=== PATIENT | male | born 1940 | race African-American/Black ===

== ENCOUNTER 2017-08-16 08:10 | Emergency (ER) | payer OTHER, MEDICAID ==
[~2017-08-16] VITALS: Ht 177.8 cm; Wt 86.0 kg
[2017-08-16 09:55] VITALS: BP 143/75
== END 2017-08-16 11:37 | disposition home or self-care (01) ==
LOC: ER 09:34
DX: L05.91 Pilonidal cyst without abscess (principal); I10 Essential (primary) hypertension; Z88.0 Allergy status to penicillin
CPT/HCPCS: 99283

== ENCOUNTER 2020-05-30 09:34 | Emergency (ER) | payer MEDICAID, MEDICARE, OTHER ==
[~2020-05-30] VITALS: Ht 177.8 cm; Wt 86.0 kg
[2020-05-30] MEDS ORDERED: ACETAMINOPHEN 325MG TABLET PO ONE (10:15)
[2020-05-30 10:51] VITALS: BP 131/75
== END 2020-05-30 10:53 | disposition home or self-care (01) ==
LOC: ER 09:34
DX: G89.29 Other chronic pain (principal); M79.671 Pain in right foot; I10 Essential (primary) hypertension; Z88.0 Allergy status to penicillin
CPT/HCPCS: 73630; 99283

== ENCOUNTER 2022-01-31 08:03 | Inpatient (IN) | payer BC, MEDICARE ==
[~2022-01-31] VITALS: Ht 177.8 cm; Wt 85.3 kg
[2022-01-31] MEDS ORDERED: IOHEXOL-350 100 ML BOTTLE ONE (10:12)
[2022-01-31] MEDS ORDERED: ATROPINE SULFATE 1MG/ML VIAL IV ONE (10:45)
[2022-01-31] MEDS ORDERED: AMLODIPINE 5MG TABLET PO SCH (12:30)
[2022-01-31 12:35] LABS: BASOPHILS % 0.4 % (0.0-2.0); EOSINOPHILS % 0.8 % (0.0-5.0); HEMATOCRIT. 33.2 % (42.0-52.0); HEMOGLOBIN. 11.2 g/dL (14.0-18.0); LYMPHOCYTES % 17.6 % (20.0-50.0); MEAN CORPUSCULAR HEMOGLOBIN 30.4 pg (28.0-32.0); MEAN CORPUSCULAR VOLUME 90.2 fL (80.0-94.0); MEAN PLATELET VOLUME 9.5 fl (7.4-10.4); MONOCYTES % 5.9 % (2.0-8.0); NEUTROPHILS % 75.3 % (40.0-76.0); PLATELET 137 x1000/uL (130-400); RED BLOOD CELL COUNT 3.68 mill/uL (4.7-6.1); RED CELL DISTRIBUTION WIDTH 14.9 % (11.6-14.6)
[2022-01-31 12:47] LABS: CHLORIDE 111 mEq/L (98-107)
[2022-01-31 13:00] LABS: HDL CHOLESTEROL 63 mg/dL (40-59); LDL CHOLESTEROL 110 mg/dL (5-100)
[2022-01-31 14:25] VITALS: BP 122/56
[2022-01-31 16:00] VITALS: BP 173/85
[2022-01-31] MEDS ORDERED: HYDROCODONE/ACETAMINOPHEN 5/325MG TABLET PO PRN (19:30)
[2022-01-31] MEDS ORDERED: ACETAMINOPHEN 325MG TABLET PO PRN (19:30)
[2022-01-31 20:00] VITALS: BP 140/95
[2022-01-31] MEDS: ATORVASTATIN CALCIUM 20MG TABLET PO SCH (21:05)
[2022-01-31 21:22] LABS: T4 FREE 1.19 ng/dL (0.76-1.46)
[2022-02-01] VITALS: BP 142/70
[2022-02-01 04:00] VITALS: BP 118/57
[2022-02-01 07:22] LABS: BASOPHILS % 0.5 % (0.0-2.0); EOSINOPHILS % 4.6 % (0.0-5.0); HEMATOCRIT. 29.5 % (42.0-52.0); LYMPHOCYTES % 31.8 % (20.0-50.0); MEAN CORPUSCULAR HEMOGLOBIN 30.5 pg (28.0-32.0); MEAN CORPUSCULAR VOLUME 89.9 fL (80.0-94.0); MEAN PLATELET VOLUME 10.2 fl (7.4-10.4); MONOCYTES % 8.7 % (2.0-8.0); NEUTROPHILS % 54.4 % (40.0-76.0); PLATELET 132 x1000/uL (130-400); RED BLOOD CELL COUNT 3.28 mill/uL (4.7-6.1); RED CELL DISTRIBUTION WIDTH 14.8 % (11.6-14.6)
[2022-02-01 07:26] LABS: CHLORIDE 110 mEq/L (98-107)
[2022-02-01] MEDS ORDERED: NALOXONE HCL 0.4MG/ML VIAL IV PRN (07:45)
[2022-02-01 08:00] VITALS: BP 120/45
[2022-02-01] MEDS ORDERED: ASPIRIN 81MG TABLET PO SCH (09:00)
[2022-02-01] MEDS ORDERED: ENOXAPARIN 40MG/0.4ML SYR SUBCUT SCH (09:00)
[2022-02-01] MEDS: AMLODIPINE 10MG TABLET PO SCH (09:37)
[2022-02-01 12:00] VITALS: BP 125/70
[2022-02-01 16:00] VITALS: BP 110/56
[2022-02-01 20:00] VITALS: BP 154/58
[2022-02-01] MEDS: ATORVASTATIN CALCIUM 20MG TABLET PO SCH (20:44)
[2022-02-02] VITALS: BP 139/62
[2022-02-02 06:17] LABS: BASOPHILS % 0.9 % (0.0-2.0); HEMATOCRIT. 30.2 % (42.0-52.0); HEMOGLOBIN. 10.2 g/dL (14.0-18.0); LYMPHOCYTES % 32.8 % (20.0-50.0); MEAN CORPUSCULAR HEMOGLOBIN 30.5 pg (28.0-32.0); MEAN CORPUSCULAR VOLUME 89.9 fL (80.0-94.0); MEAN PLATELET VOLUME 9.7 fl (7.4-10.4); NEUTROPHILS % 50.3 % (40.0-76.0); PLATELET 118 x1000/uL (130-400); RED BLOOD CELL COUNT 3.36 mill/uL (4.7-6.1); RED CELL DISTRIBUTION WIDTH 14.7 % (11.6-14.6)
[2022-02-02 06:37] LABS: CHLORIDE 110 mEq/L (98-107)
[2022-02-02 08:00] VITALS: BP 137/59
[2022-02-02] MEDS: AMLODIPINE 10MG TABLET PO SCH (08:15)
[2022-02-02 09:40] VITALS: BP 122/81
[2022-02-02] MEDS ORDERED: AMLO10TA80 PO (11:12)
[2022-02-02 12:00] VITALS: BP 125/79
== END 2022-02-02 12:38 | disposition home or self-care (01) | DRG 310 ==
LOC: ER 08:03 → 7WST 12:53 → EDBEDREQTM 12:54 → EDBEDREQ 12:54 → ENRESERV 13:18
PROVIDERS: ADMIT Internal Medicine; ATTEND Internal Medicine
DX: I44.1 Atrioventricular block, second degree (principal); M25.532 Pain in left wrist; M79.605 Pain in left leg; M79.642 Pain in left hand; E78.5 Hyperlipidemia, unspecified; E03.9 Hypothyroidism, unspecified; I10 Essential (primary) hypertension; E87.8 Other disorders of electrolyte and fluid balance, not elsewhere classified; D64.9 Anemia, unspecified; R20.2 Paresthesia of skin; Z85.46 Personal history of malignant neoplasm of prostate; Z88.0 Allergy status to penicillin; V19.40XA Pedal cycle driver injured in collision with unspecified motor vehicles in traffic accident, initial encounter; Y93.55 Activity, bike riding; Y92.89 Other specified places as the place of occurrence of the external cause; Y99.8 Other external cause status; M48.02 Spinal stenosis, cervical region; Z92.3 Personal history of irradiation; M47.812 Spondylosis without myelopathy or radiculopathy, cervical region
CPT/HCPCS: 36415; 70486; 71045; 73110; 73130; 73552; 80048; 80053; 80061; 83735; 84439; 84443; 84480; 84484; 85025; 93005; 93306; 99291; J0461; Q9967

== ENCOUNTER 2022-07-21 13:04 | Emergency (ER) | payer BC ==
[~2022-07-21] VITALS: Ht 175.3 cm; Wt 75.0 kg
[~2022-07-21 13:04] MED LIST: AMLO10TA80 PO
[2022-07-21 14:44] LABS: BASOPHILS % 0.8 % (0.0-2.0); EOSINOPHILS % 1.3 % (0.0-5.0); HEMATOCRIT. 36.2 % (42.0-52.0); HEMOGLOBIN. 12.1 g/dL (14.0-18.0); LYMPHOCYTES % 17.8 % (20.0-50.0); MEAN CORPUSCULAR HEMOGLOBIN 29.4 pg (28.0-32.0); MEAN CORPUSCULAR VOLUME 87.8 fL (80.0-94.0); MONOCYTES % 11.5 % (2.0-8.0); NEUTROPHILS % 68.6 % (40.0-76.0); PLATELET 120 x1000/uL (130-400); RED BLOOD CELL COUNT 4.12 mill/uL (4.7-6.1)
[2022-07-21 14:51] LABS: CHLORIDE 105 mEq/L (98-107)
[2022-07-21 15:00] VITALS: BP 167/79
== END 2022-07-21 15:10 | disposition home or self-care (01) ==
LOC: ER 13:04
DX: R53.1 Weakness (principal); I10 Essential (primary) hypertension
CPT/HCPCS: 36415; 71045; 80053; 83735; 84484; 85025; 99284